=== PATIENT | male | born 1970 | race Caucasian/White ===

== ENCOUNTER 2016-12-20 18:13 | Emergency (ER) | payer MEDICARE, MEDICAID ==
[~2016-12-20] VITALS: Ht 170.2 cm; Wt 70.1 kg
[~2016-12-20 18:13] MED LIST: ARIP5TAB5 PO; CLOZ100T PO; CLOZ25TA PO; PROZ20 PO; abilify PO; alprazolam PO; benztropine PO; clozaril PO; prozac PO
[2016-12-20 18:18] VITALS: BP 164/98; PULSE 96; RESP 16; O2SAT 96
--- NOTE | 2016-12-20 18:54 | ED.REPORT ---
HPI-Psychiatric Illness Date of Service Dec 20, 2016 ED Provider: Dr. Ward Pt is a 46 y/o male w/ a hx of schizophrenia, developmental delay, presenting to the ED with his brother due to change in mental status onset yesterday. The patient was previously on Clozaril but was taken off this and placed on Venlafaxine and Rexulti 1 month ago which helped for a couple weeks but since yesterday these have been negatively affecting him. His brother states he is normally able to communicate but recently has been experiencing "increases in psychotic episodes" where he has been not answering questions, unable to make decisions, and not interacting. They haven't been able to schedule an appointment to discuss his medications with his provider at [facility] because they don't have open availabilities. He was given a dose of Xanax early today for sedation. He complains of nausea and SOB. Pt denies auditory or visual hallucinations, any pain. Nursing Notes Stated Complaint: MENTAL HEALTH Chief Complaint: Psychiatric Complaint Nursing Notes Reviewed: Yes Allergies: Coded Allergies: No Known Allergies (Verified Allergy, Unknown, 12/20/16) Scheduled ([abilify]) PO DAILY ([clozaril]) PO DAILY ([prozac]) PO DAILY ([benztropine]) PO DAILY ([alprazolam]) PO DAILY Aripiprazole (Abilify) 5 Mg Tablet 5 MG PO AM Clozapine (Clozaril) 25 Mg Tablet 75 MG PO AM Clozapine (Clozaril) 100 Mg Tablet 100 MG PO HS Clozapine (Clozaril) 100 Mg Tablet 200 MG PO DAILY Fluoxetine (Prozac) 20 Mg Cap 20 MG PO AM General Time Seen by MD: 18:53 Chief Complaint Other (abnormal mental state) Hx Obtained From: Patient, Other family... (brother) Arrived By: Walk-in Symptom Duration: Since onset Progression Since Onset: Constant Severity: Current: No pain currently Severity: Maximum: No pain Risk-Psychiatric Illness Suicide Risk Stratification RF Statements: Risk factors N/A Past Medical History Past Medical History Notes: Psychiatric care followed by [facility] and the patient's brother Past Medical History Developmental Delay, unspecified Anxiety Schizophrenia Past Surgical History None reported Smoking History Never Smoker Social History Other Social History: Good social support Ambulatory Status Independent Review of Systems Review of Systems Note: Limited to history from brother Respiratory: Reports: Shortness of breath GI: Reports: Nausea Psychiatric: Reports: Change mental status, Confusion, Denies: Hallucinations, auditory, Hallucinations, visual Complete sys rev & neg: except as marked. Physical Exam Initial Vital Signs Vital Signs (First) Date Time Temp Pulse Resp B/P Pulse Ox O2 Delivery O2 Flow Rate FiO2 12/20/16 18:18 36.8 96 16 164/98 96 Room Air Initial VS: Reviewed, Vital signs abnormal Head / Eyes: Atraumatic, Normocephalic ENT: Mucous membranes moist, Conjunctiva normal, No scleral icterus Neck: Supple, Full range of motion Cardiovascular: Regular rate & rhythm, Heart sounds normal, Intact distal pulses Abdomen / GI: Soft, Non-tender Extremities: Vascular intact, Neuro intact Skin: Warm, Dry Neurologic: No motor deficits Drowsy Moving all extremities No facial droop PSYCH: Poor eye contact Able to answer only simple questions Respiratory / Chest: Breath sounds = bilat, No respiratory distress, No rales, No rhonchi, No wheezing Decreased airation bilat Interpretation & Diagnostics Lab Results Interpretation Result Diagram: 12/20/16 1905 12/20/16 1905 Test 12/20/16 19:05 White Blood Count 5.0th/mm3 (3.8-10.1) Red Blood Count 5.29mil/mm3 (4.40-5.80) Hemoglobin 15.5g/dL (13.8-17.2) Hematocrit 45.9% (41.0-50.0) Mean Corpuscular Volume 86.8fL (81-100) Mean Corpuscular Hemoglobin 29.3pg (27.0-35.0) Mean Corpuscular Hemoglobin Concent 33.8% (32.0-37.0) Red Cell Distribution Width 12.9% (12.3-15.4) Platelet Count 201bil/L (150-400) Neutrophils (%) (Auto) 66.4% (40-74) Lymphocytes (%) (Auto) 16.0% (14-46) Monocytes (%) (Auto) 17.0% (4-12) Eosinophils (%) (Auto) 0% (0-5) Basophils (%) (Auto) 0% (0-3) Sodium Level 137mEq/L (134-144) Potassium Level 4.0mEq/L (3.5-5.2) Chloride Level 102mEq/L (97-108) Carbon Dioxide Level 22mmol/L (18-29) Blood Urea Nitrogen 8mg/dL (6-24) Creatinine 0.68mg/dL (0.76-1.27) Estimat Glomerular Filtration Rate 133mL/min (>59) Glucose Level 101mg/dL (60-99) Calcium Level 8.9mg/dL (8.5-10.1) Total Bilirubin 0.5mg/dL (0.0-1.2) Aspartate Amino Transf (AST/SGOT) 23U/L (0-50) Alanine Aminotransferase (ALT/SGPT) 16U/L (0-44) Alkaline Phosphatase 75U/L (25-150) Total Protein 6.7g/dL (6.4-8.4) Albumin 4.3g/dL (3.4-5.0) Thyroid Stimulating Hormone (TSH) 0.603uIU/mL (0.450-4.500) Hold Gonzalez Top Tube Received (Received) Alcohols < 10mg/dL (0-10) Lab Results Interpretation: Urine tox screen negative X-Ray Chest Interpretation Chest Xray Interpretation: IMPRESSION: No radiographic evidence of acute cardiopulmonary pathology. Dictated by: Howie Driver M.D. on 12/20/2016 at 20:08 Approved by: Howie Driver M.D. on 12/20/2016 at 20:09 View: Portable, 1 view Interpretation / Wet Read by: Interpret - Radiologist Re-Eval/Medical Decision Med Decision/Clinical Course The patient is brought in by his brother for his schizophrenia. The patient is having less communicative which is usual when he decompensates. He had some recent medication changes which are possibly the cause. Patient was cooperative in the emergency department. He was provided by our social work instructor and has upcoming appointment which his brother will make sure he keeps as he is his primary caregiver. The patient is not currently doing as well as usual likely need medication adjustment however he is cooperative enough and is being cared for appropriately. The patient was a little somnolent however he had been given alprazolam by his brother which he is to use as needed and says he uses infrequently. Source of Hx: Old records, Family Re-Evaluation/Progress : Time of Eval: 20:04 Re-Evaluation/Progress Note: Family agrees with plan for d/c and outpatient f/u regarding medications. F/U instructions and RTER warnings given. All questions addressed. Counseled Regarding: Diagnosis, Lab results, Need for follow-up, When/why to return to ED Discharge & Departure Impression: Primary Impression: Schizophrenia Schizophrenia type: unspecified Qualified Code: F20.9 - Schizophrenia, unspecified )( Condition at Discharge: No danger to self, No danger to others, No suicidal ideation, No homicidal ideation Disposition: Home Discharge Condition All VS Reviewed: Yes Condition: Stable Patient Instructions: Schizophrenia (ED) Additional Instructions: The cause of his symptoms is uncertain but may be related to his medications. Labs and x-ray today were reassuring. Keep your scheduled appointment to discuss today's visit and his medications with his primary care provider. Return to the emergency department for any new or worsening symptoms. Referrals: Chintan Mckeon MD (PCP) Scribe Attestation Portions of this note were transcribed by Mehran Gross. I, Dr. Ward personally performed the history, physical exam and medical decision-making; I reviewed and confirmed the accuracy of the information in the transcribed note. copies to: Chintan Mckeon MD, Jena M MD Dec 20, 2016 18:54 MEHRAN GROSS Dec 20, 2016 19:09
[2016-12-20 19:16] LABS: BASOPHILS % (AUTO) 0 % (0-3); EOSINOPHILS % (AUTO) 0 % (0-5); Mean Corpuscular Hemoglobin 29.3 pg (27.0-35.0); Mean Corpuscular Volume 86.8 fL (81-100); NEUTROPHILS % (AUTO) 66.4 % (40-74); Platelet Count 201 bil/L (150-400)
--- NOTE | 2016-12-20 20:10 | DRSVH ---
PROCEDURE: X-RAY CHEST ONE VIEW, PORTABLE ([id number]) INDICATIONS: short of breath TECHNIQUE: One view of the chest was acquired. COMPARISON: None. FINDINGS: Surgical changes and devices: None. Lungs and pleura: No pleural effusions or pneumothorax. Lungs are clear. Mediastinum: Mediastinal contours appear normal. Heart size is normal. Bones and chest wall: No suspicious bony lesions. Overlying soft tissues appear unremarkable. Right shoulder postoperative change. IMPRESSION: No radiographic evidence of acute cardiopulmonary pathology. Dictated by: Howie Driver M.D. on 12/20/2016 at 20:08 Approved by: Howie Driver M.D. on 12/20/2016 at 20:09
[2016-12-20 20:34] VITALS: BP 134/62; PULSE 75; RESP 14; O2SAT 96
== END 2016-12-20 20:37 | disposition home or self-care (01) ==
LOC: SED 18:13
DX: F20.9 Schizophrenia, unspecified (principal); F41.9 Anxiety disorder, unspecified
CPT/HCPCS: 36415; 71010; 80053; 81002; 84443; 85025; 90791; 99284; G0480